=== PATIENT | male | born 1980 | race Caucasian/White ===

== ENCOUNTER → 2018-02-02 | Outpatient (CLI) | payer OTHER ==
[~2018-02-02] MED LIST: NONE PER PT
== END | disposition home or self-care (01) ==
LOC: STAR 10:50
PROVIDERS: ATTEND Surgery
DX: Z02.9 Encounter for administrative examinations, unspecified (principal)

== ENCOUNTER 2018-02-20 10:58 | Day surgery (SDC) | payer OTHER ==
[~2018-02-20] VITALS: Ht 177.8 cm; Wt 90.4 kg
[~2018-02-20 10:58] MED LIST changes: +BUPIVACAINE/PF-EPI 0.5% 1:200K ONE
[2018-02-20 11:38] VITALS: BP 129/77
[2018-02-20] MEDS ORDERED: LACTATED RINGERS 1,000 ML IV SCH (11:38)
[2018-02-20] MEDS ORDERED: BUPIVACAINE/PF-EPI 0.5% 1:200K ONE (12:33)
[2018-02-20] MEDS ORDERED: GABAPENTIN 300 MG CAPSULE PO ONE (13:00)
[2018-02-20] MEDS ORDERED: OXYcodone IR 5MG TABLET PO ONE (13:00)
[2018-02-20] MEDS ORDERED: ACETAMINOPHEN 500 MG TABLET PO ONE (13:00)
[2018-02-20] MEDS ORDERED: FENTANYL PF 250 MCG/5ML ONE (13:04)
[2018-02-20] MEDS ORDERED: MIDAZOLAM 1 MG/ML, 2ML ONE (13:18)
[2018-02-20] MEDS ORDERED: ROCURONIUM 10MG/ML,5ML ONE (13:48)
[2018-02-20] MEDS ORDERED: CEFAZOLIN 1,000 MG ONE (13:48)
[2018-02-20] MEDS ORDERED: DEXAMETHASONE 4 MG/ML, 1ML ONE (13:48)
[2018-02-20] MEDS ORDERED: GLYCOPYRROLATE 0.2MG/1ML, 5ML ONE (13:48)
[2018-02-20] MEDS ORDERED: NEOSTIGMINE 1 MG/ML, 10ML ONE (13:48)
[2018-02-20] MEDS ORDERED: PROPOFOL 10 MG/ML, 20ML ONE (13:48)
[2018-02-20] MEDS ORDERED: SUCCINYLCHOLINE 20 MG/ML, 10ML ONE (13:48)
[2018-02-20] MEDS ORDERED: ONDANSETRON 2MG/ML, 2ML ONE (13:48)
[2018-02-20] MEDS ORDERED: PROCHLORPERAZINE 5 MG/ML, 2ML IV PRN (14:00)
[2018-02-20] MEDS ORDERED: hydrALAzine 20 MG/ML, 1ML IV PRN (14:00)
[2018-02-20] MEDS ORDERED: DIPHENHYDRAMINE 50 MG/ML, 1ML IVPush PRN (14:00)
[2018-02-20] MEDS ORDERED: MEPERIDINE/PF 25MG/0.5ML IVPush PRN (14:00)
[2018-02-20] MEDS ORDERED: LABETALOL 5MG/ML, 20ML IV PRN (14:00)
[2018-02-20] MEDS ORDERED: FENTANYL PF 100 MCG/2ML IV PRN (14:00)
[2018-02-20] MEDS ORDERED: OXYcodone 5 MG/5 ML ORAL.SOL UDC PO PRN ×2 (14:00)
[2018-02-20] MEDS ORDERED: morphine SULFATE 10 MG/ML, 1ML IVPush PRN (14:00)
[2018-02-20] MEDS ORDERED: HYDROmorphone 1 MG/ML, 1ML IV PRN (14:00)
[2018-02-20] MEDS ORDERED: OXYcodone 5 MG/5 ML ORAL.SOL UDC ONE (14:26)
== END 2018-02-20 17:30 | disposition home or self-care (01) ==
LOC: OUT 10:58
PROVIDERS: ATTEND Surgery
DX: K40.90 Unilateral inguinal hernia, without obstruction or gangrene, not specified as recurrent (principal); D17.6 Benign lipomatous neoplasm of spermatic cord; G47.33 Obstructive sleep apnea (adult) (pediatric); Z72.89 Other problems related to lifestyle; Z87.891 Personal history of nicotine dependence; Z79.899 Other long term (current) drug therapy; Z98.52 Vasectomy status
CPT/HCPCS: 49650; C1781; J0330; J0690; J1100; J2250; J2405; J2704; J2710; J3010; J3490; J7120; S2900